=== PATIENT | female | born 1950 | race Caucasian/White ===

== ENCOUNTER 2018-04-10 20:20 | Emergency (ER) | payer MEDICARE, OTHER ==
[2018-04-10] MEDS ORDERED: ENOXAPARIN SODIUM 100 MG/ML DISP.SYRIN SQ ONE (20:54)
--- NOTE | 2018-04-10 21:16 | ED Physician Documentation ---
Lower Extremity Problem - HPI Stated Complaint: "My Rt knee/ nichole is swollen and hot to the touch". Chief Complaint: Lower Extremity Problem Location of Injury: R leg, R knee Onset: days ago (2) Timing: still present, worse Recent Injury: Yes Where: home Severity: moderate Quality: pain, swelling Exacerbated By: walking Relieved By: rest Associated Symptoms: denies: chest pain, shortness of breath, rapid heart rate - ROS CONST: denies: fever MS/SKIN/LYMPH: leg swelling. denies: calf pain CVS/RESP: none GI/: none EYES/ENT: none NERUO/PSYCH: denies: difficulty walking - PAST HX Past History: none PE Risk Factors: cast (immoblizer), leg swelling Other History: hyperlipidemia Surgeries/Procedures: none Allergies/Adverse Reactions: Allergies Allergy/AdvReac Type Severity Reaction Status Date / Time No Known Allergies Allergy Verified 04/10/18 20:49 Home Medications: Ambulatory Orders Medication Instructions Recorded Trazodone HCl [Desyrel] 150 mg HS 07/07/13 Atorvastatin Calcium 5 mg PO PM 04/10/18 Calcium Carbonate/Vitamin D3 1 tab PO DAILY 04/10/18 [Calcium 500-Vit D3 600 Caplet] Cephalexin [Keflex] 500 mg PO BID 7 Days #14 capsule 04/10/18 Diclofenac Sodium 75 mg PO PM 04/10/18 Ferrous Gluconate [Iron] 236 mg PO DAILY 04/10/18 Magnesium Oxide [Magnesium] 400 mg PO DAILY 04/10/18 Melatonin 5 mg PO DAILY 04/10/18 Mirabegron [Myrbetriq] 25 mg PO DAILY 04/10/18 Multivitamin [Multiple Vitamins] 1 tab PO DAILY 04/10/18 [place]-3 Fatty Acids/Fish Oil [Fish 1 cap PO DAILY 04/10/18 Oil 1,000 mg Capsule] Omeprazole 20 mg PO DAILY 04/10/18 - SOCIAL HX Smoking History: quit greater than 1 year, greater than 1 pack/day Alcohol Use: none Drug Use: none - FAMILY HX Family History: no significant history - VITAL SIGNS Vital Signs: Vital Signs Temp Pulse Resp BP Pulse Ox 97.6 F 88 16 155/61 98 04/10/18 20:20 04/10/18 20:20 04/10/18 20:20 04/10/18 20:20 04/10/18 20:20 ED Results Lab/Radiology - Orders Orders: ED Orders Category Date Time Status Enoxaparin Sodium [Lovenox] Med 04/10/18 20:54 Discontinued 100 mg SQ NOW ONE Lower Extremity Problem - EXAM General Appearance: [id number] Legs: right: soft tissue tenderness, swelling, other (hot to touch and redness) Knees: right: soft tissue tenderness, swelling Neuro/Tendon: normal sensation EENT: eye inspection normal RESPIRATORY: no resp distress, breath sounds normal CVS: reg rate & rhythm, heart sounds normal VASCULAR: pulses full/equal NEURO/PSYCH: oriented X3 SKIN: warm/dry BACK: no CVA tenderness Discharge Clincal Impression: Right leg swelling Referrals: Ruma Mcgrath FNP [Primary Care Provider] - 2 Days Additional Instructions: Call [phone] [facility] Schedule line to schedule US of lower extremity. Limit walking. Keep right leg elevated. Call 911 if chest pain, chest pressure or shortness of breath. Lovenox 100mg subq was given in the ED at 2100. Condition: Stable Disposition: 01 HOME, SELF-CARE Decision to Admit: NO Date of Decison to Admit: 04/10/18 Decision Time: 21:36
[2018-04-10 22:07] VITALS: BP 128/80
== END 2018-04-10 21:50 | disposition home or self-care (01) ==
LOC: ED 20:20
DX: R60.0 Localized edema (principal)
CPT/HCPCS: 96372; 99284; J1650